=== PATIENT | female | born 1985 | race Caucasian/White ===

== ENCOUNTER 2018-05-17 04:49 | Inpatient (IN) | payer OTHER ==
[2018-05-17] MEDS ORDERED: CEFAZOLIN SODIUM 1 GM PDS 2 GM in SODIUM CHLORIDE 0.9% 100 ML 100 ML IV ONE (04:53)
[2018-05-17] MEDS ORDERED: CITRIC ACID/SODIUM CITRATE SOL PO SCH (05:00)
[2018-05-17] MEDS: SODIUM CHLORIDE 0.9% FLUSH 10 ML SOL IV SCH ×3 (05:00→21:25)
[2018-05-17] MEDS: LACTATED RINGERS 1,000 ML IV SCH ×5 (05:05→21:56)
[2018-05-17] MEDS ORDERED: SODIUM CHLORIDE 0.9% FLUSH 10 ML SOL IV PRN (05:14)
[2018-05-17] MEDS ORDERED: OXYTOCIN 10000 MU/ML SOL ONE (06:07)
[2018-05-17] MEDS ORDERED: DEXAMETHASONE 20 MG/5 ML (4 MG/ML SOL) ONE (06:07)
[2018-05-17] MEDS ORDERED: PHENYLEPHRINE HYDROCHLORIDE 10 MG/ML SOL ONE (06:07)
[2018-05-17] MEDS ORDERED: MORPHINE SULFATE 0.5 MG/ML SOL ONE (06:07)
[2018-05-17] MEDS ORDERED: CEFAZOLIN SODIUM 1 GM PDS ONE (06:07)
[2018-05-17] MEDS ORDERED: FENTANYL 100MCG/2ML SOL ONE (06:07)
[2018-05-17] MEDS ORDERED: ONDANSETRON HCL 4 MG/2 ML SOL ONE (06:07)
[2018-05-17] MEDS ORDERED: BUPIVACAINE HCL IN DEXTROSE/PF 2 ML AMPUL IJ ONE (06:16)
[2018-05-17] MEDS ORDERED: BUPIVACAINE/EPI 0.25% 50 ML SOL ONE (06:33)
[2018-05-17] MEDS ORDERED: LACTATED RINGERS 1,000 ML with OXYTOCIN 10000 MU/ML 20 MU IV ONE (07:07)
[2018-05-17 07:30] LABS: APPEARANCE,URINE Clear; BILIRUBIN,URINE NEGATIVE (NEGATIVE); COLOR,URINE Yellow; GLUCOSE, URINE (UA) NEGATIVE (NEGATIVE); KETONES,URINE NEGATIVE (NEGATIVE); LEUKOCYTE ESTERASE ,URINE 1+ (NEGATIVE); NITRATE,URINE NEGATIVE (NEGATIVE); OCCULT BLOOD,URINE NEGATIVE (NEG-TRACE); UROBILINOGEN,URINE 0.2 (0.2-1.0 EU)
[2018-05-17 07:49] LABS: RBC,URINE NEGATIVE (0-3AV/HPF)
[2018-05-17 07:50] LABS: BACTERIA 1+ (< 1+); CRYSTALS 1+ (0-3 AVE/HPF)
[2018-05-17] MEDS ORDERED: METHYLERGONOVINE MALEATE 0.2 MG TAB PO PRN (08:26)
[2018-05-17] MEDS ORDERED: WITCH HAZEL 1 EA PAD TOP PRN (08:26)
[2018-05-17] MEDS ORDERED: ONDANSETRON HCL 4 MG/2 ML SOL IV PRN (08:26)
[2018-05-17] MEDS ORDERED: BENZOCAINE/MENTHOL 1 SPR TOP PRN (08:26)
[2018-05-17] MEDS ORDERED: BISACODYL 10 MG SUP PR PRN (08:26)
[2018-05-17] MEDS ORDERED: FLEET ENEMA PR PRN (08:26)
[2018-05-17] MEDS ORDERED: TEMAZEPAM 15MG 15 MG CAP PO PRN (08:26)
[2018-05-17] MEDS ORDERED: DIPHENHYDRAMINE 25 MG CAP PO PRN (08:26)
[2018-05-17] MEDS: DOCUSATE SODIUM 100 MG SGL PO SCH ×2 (09:01→21:24)
[2018-05-17] MEDS: KETOROLAC TROMETHAMINE 30 MG/ML SOL IV PRN ×2 (10:15→19:19)
[2018-05-17] MEDS: APAP/HYDROCODONE 1 EACH TABLET PO PRN ×3 (12:12→22:10)
[2018-05-17] MEDS ORDERED: SIMETHICONE 40 MG/0.6 ML SUS PO ONE (18:30)
[2018-05-17] MEDS ORDERED: SIMETHICONE 40 MG/0.6 ML SUS PO PRN (19:15)
[2018-05-17] MEDS: FOLIC ACID 1 MG TAB PO SCH (21:25)
[2018-05-17] MEDS: MULTIVITAMIN2 1 EA TAB PO SCH (21:25)
[2018-05-18] MEDS: KETOROLAC TROMETHAMINE 30 MG/ML SOL IV PRN (01:26)
[2018-05-18] MEDS: APAP/HYDROCODONE 1 EACH TABLET PO PRN ×5 (01:45→22:00)
[2018-05-18 06:22] VITALS: O2SAT 97
[2018-05-18] MEDS: LACTATED RINGERS 1,000 ML IV SCH ×3 (06:23→19:08)
[2018-05-18] MEDS: SODIUM CHLORIDE 0.9% FLUSH 10 ML SOL IV SCH ×2 (06:23→15:40)
[2018-05-18] MEDS: FERROUS GLUCONATE 324 MG TABLET PO SCH (08:55)
[2018-05-18] MEDS: IBUPROFEN 600 MG TAB PO PRN ×2 (08:55→20:18)
[2018-05-18] MEDS: DOCUSATE SODIUM 100 MG SGL PO SCH ×2 (08:55→21:26)
[2018-05-18 10:47] LABS: ABO B
[2018-05-18 10:48] LABS: RH TYPE Negative
[2018-05-18] MEDS: MULTIVITAMIN2 1 EA TAB PO SCH (21:25)
[2018-05-18] MEDS: FOLIC ACID 1 MG TAB PO SCH (21:25)
[2018-05-19] MEDS: APAP/HYDROCODONE 1 EACH TABLET PO PRN (05:11)
[2018-05-19] MEDS: IBUPROFEN 600 MG TAB PO PRN ×2 (05:11→11:00)
[2018-05-19] MEDS: SODIUM CHLORIDE 0.9% FLUSH 10 ML SOL IV SCH ×2 (05:13→10:55)
[2018-05-19] MEDS: LACTATED RINGERS 1,000 ML IV SCH (06:37)
[2018-05-19 07:20] LABS: BASOPHILS % (AUTO) 0 % (0-3); EOSINOPHILS % (AUTO) 1 % (0-9); HEMATOCRIT 31 % (35-47); HEMOGLOBIN 10.1 gm/dl (12.0-15.5); LYMPHOCYTES % (AUTO) 12.6 % (10-50); MEAN CORPUSCULAR HEMOGLOBIN 28.6 pg (27.0-32.0); MEAN CORPUSCULAR HGB CONC 32.8 gm/dl (32.0-36.0); MEAN CORPUSCULAR VOLUME 87 fL (81-99); MONOCYTES % (AUTO) 5.6 % (0-12); NEUTROPHILS % (AUTO) 80.6 % (37-80)
[2018-05-19] MEDS: FERROUS GLUCONATE 324 MG TABLET PO SCH (09:08)
[2018-05-19] MEDS: DOCUSATE SODIUM 100 MG SGL PO SCH (09:08)
[2018-05-19 10:38] VITALS: BP 127/81; PULSE 79; RESP 18; TEMP 97.7
== END 2018-05-19 17:20 | disposition home or self-care (01) | DRG 788 ==
LOC: OB 04:49 → OBSVTOIN 04:49
PROVIDERS: ADMIT Family Medicine; ATTEND Family Medicine
PROC: 10D00Z1 Extraction of Products of Conception, Low, Open Approach (ICD-10-PCS; principal; 2018-05-17 06:30)
DX: O82 Encounter for cesarean delivery without indication (principal); Z3A.38 38 weeks gestation of pregnancy; Z37.0 Single live birth
CPT/HCPCS: 36415; 59025; 81001; 85018; 85025; 86900; 86901; 87088; J0690; J1100; J1885; J2274; J2405; J2590; J3010; A9270-GY; J2370